=== PATIENT | male | born 1985 | race Caucasian/White ===

== ENCOUNTER 2021-06-18 02:37 | Emergency (ER) | payer OTHER, BC ==
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
[2021-06-18 02:47] VITALS: BP 128/81
== END 2021-06-18 02:58 | disposition home or self-care (01) ==
LOC: ED 02:37
DX: Z02.89 Encounter for other administrative examinations (principal)
CPT/HCPCS: 99281